=== PATIENT | male | born 1980 | race Hispanic/Latino ===

== ENCOUNTER 2020-05-05 22:05 | Inpatient (IN) | payer OTHER, MEDICARE ==
[~2020-05-05] VITALS: Ht 167.6 cm; Wt 102.1 kg
--- NOTE | 2020-05-05 22:05 | NUR ---
ARRIVAL TO UNIT PATIENT ARRIVED BY STRETCHER WITH EMS FOR TRANSPORTATION FROM [facility]
[2020-05-05 22:15] VITALS: BP 123/84
[2020-05-06] MEDS ORDERED: ATARAX PO PRN
[2020-05-06] MEDS ORDERED: ABILIFY PO ONE (00:30)
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
[2020-05-06 07:24] LABS: BASOPHIL # 0.1 10^3/uL (0.0-0.1); BASOPHIL % 0.9 % (0.0-0.2); EOSINOPHIL # 0.4 10^3/uL (0.0-0.2); EOSINOPHIL % 4.8 % (0.0-5.0); LYMPHOCYTES # 3.25 10^3/uL1 (1.0-4.8); LYMPHOCYTES % 40.6 % (24.0-44.0); MEAN CORP HGB 30.5 pg (26-34); MONOCYTES # 0.8 10^3/uL (0.3-0.8); MONOCYTES % 9.9 % (5.0-12.0); NEUTROPHIL # 3.5 10^3/uL (1.8-7.7); NEUTROPHILS % 43.5 % (41.0-85.0); RED CELL DISTRIBUTION WIDTH 12.9 % (11.5-14.5)
[2020-05-06 07:45] LABS: CARBON DIOXIDE 29.9 mmol/L (20.0-32)
[2020-05-06 08:00] VITALS: BP 108/71
--- NOTE | 2020-05-06 08:03 | PRM.CONS ---
CONSULTATION CONSULTATION DATE OF CONSULTATION: 05/06/20 TIME: 7:15am REASON FOR CONSULT: Medical Management HISTORY OF PRESENT ILLNESS: Mr Gracia is a 39yo HM who presents to [facility] as a transfer patient from the [facility] for Major Depressive Disorder with Suicidal Ideation. Patient states that his left him recently and he became "emotionally disturbed". Patient started thinking about killing himself by overdosing with pills. He also started having auditory and visual hallucinations; and states that he started seeing an "entity" following him around, laughing at him, telling him that he was worthless and to kill himself. Currently, patient states that he is feeling "much better" now that he is back on the "right medications". He denies having any HORN, visual disturbances, chest pain, palpitations, SOB, cough, abdominal pain, NVD, fever or chills. PAST MEDICAL HISTORY: MDD, Schizophrenia with Paranoia and Delusions, Anxiety Disorder, Prior Suicide Attempt in 2004, Sinus Bradycardia, and Orthostatic Hypotension PAST SURGICAL HISTORY: [place] Tooth Extraction SOCIAL HISTORY: Pt smokes 1/2-1ppd x 17 yrs. 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 Pt denies using any recreational drugs. He is currently on Disability and not working at this time. FAMILY HISTORY: Pt states that he never knew his parents. ALLERGIES: Bupropion HOME MEDICATIONS: Pt's home meds have not yet been entered in [employer] REVIEW OF SYSTEMS: See HPI above. All other ROS negative including constitutional, eyes, ears, nose, throat, respiratory, cardiovascular, gastrointestinal, genitourinary, musculoskeletal, skin, neurological, psychiatric, and lymphatic. PHYSICAL EXAMINATION: (Conducted with assistance from RN at bedside.) VITAL SIGNS: T 98.5, HR 64, RR 19, BP 123/84, O2 sat 97% on RA GENERAL: Resting comfortably in NAD. No family or friends present at bedside. HEENT: NC/AT. PERRLA. EOMI. MMM. Neck is supple. LUNGS: CTAB. No wheezing, rales, or rhonchi. No sign of respiratory distress or cyanosis. HEART: Normal S1S2. No murmurs, rubs, gallops, or thrills. ABDOMEN: Soft. NTTP. No rebound or guarding. Normal BS throughout. EXTREMITIES: No pitting edema. Moving all 4 extremities equally and completely off the bed. NEUROLOGIC: AAOx3. No sensory deficits noted. CN II-XII grossly intact. FTN / HTS / RAHM intact BL. Gait was not assessed at this time. LABORATORY DATA: Reviewed and significant for Gluc 111 IMAGING STUDIES: No new studies today ASSESSMENT / PLAN: 1) MDD with Suicidal Ideation: Continue Tx as per Dr Felix with Psychiatry. Will also need to maintain suicidal precautions for now. 2) Anxiety Disorder / Schizophrenia with Paranoia and Delusions: Continue Tx as per Dr Felix with Psychiatry. 3) Chronic Sinus Bradycardia: Currently stable. Monitor for now. 4) Chronic Orthostatic Hypotension: Currently stable. Monitor for now. 5) Tobacco Abuse: Will prescribe a Nicotine Patch as requested. Pt has been counseled and encouraged to quit smoking. 6) DVT prophylaxis: Encourage ambulation. Pt was seen and examined with RN at bedside via Telemedicine with his permission. SHORTY THOMAS MD May 06, 2020 08:03
[2020-05-06] MEDS ORDERED: NICOTINE 21MG PATCH TD ONE (09:08)
[2020-05-06] MEDS: PAXIL PO SCH (09:12)
[2020-05-06] MEDS: NICOTINE 21MG PATCH TD SCH (09:13)
--- NOTE | 2020-05-06 09:13 | NUR ---
MORNING MEDS PT WAS GIVEN AM MEDS. PT TOOK PAXIL 20MG. APPLIED A NICOTINE 21MG PATCH PER NEW ORDER.
--- NOTE | 2020-05-06 10:12 | NUR ---
TELEMED PT WAS SEEN BY DR. MAYORGA VIA TELEMED. RECEIVED ORDERS TO DISCONTINUE ABILIFY AND START ZYPREXA, SEE EMR.
--- NOTE | 2020-05-06 10:15 | PCM.HP ---
History of Present Illness Hx of Present Illness 39 yo M, transferred from [facility] to [facility] for worsening mood, AVH, and SI with plan to OD. Patient reports that he and his a few days ago, and the stress of the situation was overwhelming. He started feeling acutely depressed, hopeless/helpless/worthless. He felt like his 4 yo daughter would not be safe with him b/c he could fall into a psychosis, so he gave his rights to his daughter away (not his 's daughter). He reports that he did have SI with plan to OD, so he sought help at the [facility]. He also reports that he started seeing VH of a better version of himself telling him that he should hurt himself. Since his arrival on the [facility], patient states that he has been feeling better, less depressed, "the patterns are still there, but the red is gone, I feel more balanced." He states that he doesn't feel suicidal anymore, but still worries about the command AH telling him to hurt himself. He hasn't had that happen today, states that the last AVH was earlier this morning, "when I closed my eyes, I could feel someone walking around around me and hear their footsteps." Patient states that his goal for his inpatient stay is to better cope with the separation from his . He states that he has been attending school, which helps him feel like he has a purpose. 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 Patient feels like he's "run out the clock" on Abilify, doesn't feel like it's controlling his symptoms very well. He states that he was previously on Zyprexa, felt like it worked well for him for a long time, "it totally stopped the hallucinations." He feels like Paxil does help significantly with his depression. E: quit November 2019, attends AA T: smokes 1/2 to 1 PPD D: denies Past Psych History: Schizophrenia, Depression, PTSD () Prior admissions - 2-3 prior admissions this year Prior suicide attempts: 2004 OD on cough/cold medicine (had just been discharged from , didn't feel like he had a purpose) Past Medical History: Sinus Bradycardia Orthostatic Hypotension Social History: D/C from [employer] for schizophrenia from Gave up rights to his 4 yo daughter On VA/ disability Review of Systems Other Mental Status Examination: Gen: A&Ox4, appears stated age, casual dress, good hygiene, good eye contact, cooperative Speech: normal rate/volume, easily understood Mood: "feeling better now" Affect: constricted Intelligence: avg by fund of knowledge TC: denies current SI/HI, feels/hears someone walking around him when he closes his eyes TP: C/L/GD Insight: fair Judgment: fair Allergies: Coded Allergies: bupropion (Verified Allergy, Intermediate, 05/06/20) tachycardia VTE VTE Risk Total Score: 0 VTE Risk Score VTE Risk: Score 0-1 = Low Risk (Aggressive mobilization; early ambulation; no VTE prophylaxis required) Score 2: Moderate Risk (Intermittent/Pneumatic Compression Device OR Lovenox/Heparin/Coumadin) Score 3-4: High Risk (Intermittent/Pneumatic Compression Device AND Lovenox/Heparin/Coumadin) Score > or =5: Highest Risk (Intermittent/Pneumatic Compression Device AND Lovenox/Heparin/Coumadin) VTE VTE Present on Admission: No Currently receiving anticoagul: No VTE Risk Total Score: 0 Exam Vital Signs Vital Signs Date Time Temp Pulse Resp B/P (MAP) Pulse Ox O2 Delivery O2 Flow Rate FiO2 05/06/20 08:00 97.6 63 20 108/71 (83) 99 Room Air General Appearance: Alert, Oriented X3, Cooperative, No acute distress HEENT: Atraumatic Psych/Mental Status: Other (see MSE above) Assessment/Plan Assessment/Plan Assessment/Plan 39 yo M, hx of Schizophrenia, depression, PTSD, presents for worsening mood/AVH/SI in the context of separation from his . Patient with an acute worsening in his depression/psychosis related to stressor, has felt better since admission, though would like to change his Abilify to Zyprexa given prior good response; he is also interested on working on his coping skills while here. Reviewed R/B/SEs of medications. Provided supportive therapy for stressors. PVU, agrees with plan. [place] I: MDD, rec, severe, with psychotic features Schizophrenia Patient History: Unknown 21 Unknown Family History Plan 1) D/C Abilify 2) Start Zyprexa Zydis 10mg SL QHS for mood/psychosis 3) Continue Paxil 20mg PO Daily for mood 4) Continue Vistaril 25mg PO Q6hrs PRN anxiety/sleep 5) Continue behavioral management 6) Appreciate hospitalist assistance with medical issues CADE MAYORGA MD May 06, 2020 10:15
--- NOTE | 2020-05-06 15:57 | NUR ---
PIRP P: ALTERED THOUGHT PROCESS, ALTERATION IN MOOD I: DIRECT LINE OF SIGHT OBSERVATION, ASSESS FOR DEPRESSION/ANXIETY, ASSESS FOR PSYCHOTIC SYMPTOMS, ASSIST WITH DIFFERENTIATING BETWEEN INTERNAL AND EXTERNAL REALITY, GIVE CLEAR AND SIMPLE INSTRUCTIONS, PROVIDE TASK-ORIENTED ACTIVITIES, PROVIDE 1:1 TO ENCOURAGE EXPRESSION OF FEELINGS, GIVE MEDICATIONS ORDERED, ALTERNATE REST/ACTIVITY, PROVIDE MEDICATION AND DISEASE PROCESS EDUCATION, PROVIDE SAFE AND SUPPORTIVE ENVIRONMENT R: PT HAS FLAT AFFECT MAJORITY OF SHIFT, IS PLEASANT WITH APPROACH. ALERT AND ORIENTED x3, PARTICIPATES IN GROUP ACTIVITIES, AND TAKES MEDICATIONS ORDERED. RATES DEPRESSION 8/10, ANXIETY 5/10, DENIES SUICIDAL/HOMICIDAL IDEATION. PT REPORTS HAVING VISUAL AND AUDITORY HALLUCINATIONS THAT HAVE DECREASED SHIFT HAS PROGRESSED, NO DELUSIONS NOTED. P: PT REQUESTED CHANGE IN ANTIPSYCHOTIC MEDICATION, WILL START ZYPREXA AT HS
--- NOTE | 2020-05-06 18:22 | NUR ---
PT PRESENTED TO ER FOR MEDICAL CLEARANCE D/T SUICIDAL THOUGHTS W/PLAN TO OD ON MEDICATIONS, AV COMMAND HALLUCINATIONS TO HURT SELF AND SYMPTOMS ASSOCIATED WITH SEVERE DEPRESSION. PT CURRENTLY LIVES HOME ALONE & PLANS TO RETURN UPON D/C. RECOMMENDED INPATIENT TREATMENT ON A VOLUNTARY STATUS AT [facility] AT THIS TIME. Addendum: 05/06/20 at 1824 by PAT Pope Amended: Links added.
--- NOTE | 2020-05-06 18:24 | NUR ---
SEE MMSE, GMAS & BIOPSYCHOSOCIAL IN PAPER CHART.
[2020-05-06 20:00] VITALS: BP 127/85
[2020-05-06] MEDS: ZYPREXA ZYDIS SL SCH (20:11)
[2020-05-06] MEDS ORDERED: ABILIFY PO SCH (21:00)
--- NOTE | 2020-05-07 02:45 | NUR ---
P.I.R.P. P. ALTERATION IN THOUGHT PROCESS I. PROVIDE EVERY 15 MINUTE CHECKS, PROVIDE DIRECT LINE OF SIGHT, PROVIDE MEDICATIONS ORDERED PER MD, PROVIDE EDUCATION REFERENCE MEDS, MONITOR FOR CHANGES IN COGNITIVE. PROVIDE 1:1 INTERVENTION TO ALLOW PATIENT TO EXPRESS FEELINGS. R. PATIENT TOOK MEDS ORDERED, ATTENDED GROUP ACTIVITY, DENIED SUICIDAL IDEATION, REPORTED ANXIETY AN 8 AND DEPRESSION 5 ON SCALE, REPORTED HE DID HAVE HALLUCINATIONS WHEN TALKING TO TREASURER THIS EVENING. PATIENT APPEARED SOME WITHDRAWN. PATIENT VOICED HE DID TRY TO CALL HIS SPOUSE TODAY BUT DID NOT GET A HOLD OF HER HE WANTED TO GET A PHONE NUMBER FOR HIS SPONSOR. SPOUSE DID CALL UNIT BUT VOICING SHE DID NOT KNOW WHO CALLED HER FROM THIS NUMBER. PATIENT WAS IN WITH TREASURER SO DID NOT DISTURB HIM. LATER TOLD PATIENT WHO HAD CALLED, PATIENT REPORTED HE WOULD CALL SPOUSE BACK TOMORROW IT WAS AFTER CALL TIME ON UNIT. P. CONTINUE CURRENT PLAN OF CARE.
[2020-05-07 07:34] VITALS: BP 134/85
[2020-05-07] MEDS: NICOTINE 21MG PATCH TD SCH (08:34)
[2020-05-07] MEDS: PAXIL PO SCH (08:34)
--- NOTE | 2020-05-07 09:40 | NUR ---
TELEMED PT WAS SEEN BY DR. MAYORGA VIA TELEMED. RECEIVED ORDERS FOR DISCHARGE, TOMORROW, 05/08/2020.
--- NOTE | 2020-05-07 09:48 | PRM.PN ---
Mood: "feeling much better" Sleep: 8 hrs Appetite: good appetite Suidical thoughts: denies Homicidal thoughts: denies Recent stressors: worried about school Monday Aggressive Behavior: denies Ability to Perform ADL'sc: independent Psychotic sympstoms: denies Manic Symptoms: denies Living situation: home/self Anxity Symptoms: "I'm anxiously excited." Anger/Irritablility: denies Appearance: Well groomed/hygience, Casual attire, Appears age stated Attitude & Behaviour: Cooperative/Pleasant Mood & Affect: Euthymic/appr/congruent, Constricted Orientation: Fully oriented per interv Attention/Concentration: Good attention, Good concentration Speech: Reg rate/vol/rhyth/prosod Judgement/Insight: Good judgement, Good insight Thought Process: Linear/goal directed Language: German Thought content/Abnormal/Psych: None/normal Fund of Knowledge: WNL Associations: WNL/Normal Associations Memory (recent and remote): Gross int/not form assess Constitutional: None Neurological: None Psychiatric: None [place] I: MDD, rec, severe with psychotic features; Schizophrenia Assessment/Plan Assessment/Plan Assessment/Plan Nursing: Patient slept 8 hours Reported AVH yesterday, playing guitar helps No AVH today Patient: Patient reports feeling better today. He had AVH yesterday, but states that he went to recreation therapy and played guitar which helped. He took Zyprexa last night, feels like it has completely stopped the voices like it did before. He reports that mood is much better than it was on admission, "I've had time to focus on treatment." No manic symptoms, no SI/HI. No current psychotic symptoms. He reports that he's anxiously excited about his progress and he hopes that he'll be able to be discharged tomorrow if his improvement is sustained. He reports that he's attending college and has assignments due on Monday, so hopes to d/c tomorrow so he can have time to complete them. Assessment: 39 yo M, hx of Schizophrenia, depression, PTSD, presents for worsening mood/AVH/SI in the context of separation from his . Patient responding well to medications and behavioral management. If his improvement is sustained tomorrow, may d/c home. PVU, agrees with plan. Patient History: Unknown 21 Unknown Family History Plan 1) Anticipate him for D/C tomorrow 2) Continue Zyprexa Zydis 10mg SL QHS for mood/psychosis 3) Continue Paxil 20mg PO Daily for mood 4) Continue Vistaril 25mg PO Q6hrs PRN anxiety/sleep 5) Continue behavioral management 6) Appreciate hospitalist assistance with medical issues CADE MAYORGA MD May 07, 2020 09:48
[2020-05-07] MEDS ORDERED: [UNRECOGNIZED DRUG - CODE] PO (12:08)
[2020-05-07] MEDS ORDERED: OLAN5TAB5 SL (12:08)
--- NOTE | 2020-05-07 17:03 | NUR ---
PIRP P: ALTERATION IN MOOD I: ASSESS FOR DEPRESSION/ANXIETY, ASSESS FOR PSYCHOTIC SYMPTOMS, GIVE CLEAR AND SIMPLE INSTRUCTIONS, PROVIDE TASK-ORIENTED ACTIVITIES, PROVIDE 1:1 TO ENCOURAGE EXPRESSION OF FEELINGS, GIVE MEDICATIONS ORDERED, ALTERNATE REST/ACTIVITY, PROVIDE SAFE AND SUPPORTIVE ENVIRONMENT R: PT HAS BRIGHT, PLEASANT AFFECT THROUGHOUT SHIFT. DENIES FEELINGS OF DEPRESSION, DOES REPORT SOME ANXIETY R/T TRYING TO FIGURE OUT HOUSING SITUATION AND POTENTIAL RELOCATION. DENIES SUICIDAL OR HOMICIDAL IDEATION, NO HALLUCINATIONS OR DELUSIONS NOTED. PT HAS PARTICIPATED IN GROUP ACTIVITIES, TAKES MEDICATIONS ORDERED, AND IS COOPERATIVE WITH ADLS. INITIATES INTERACTION WITH STAFF AND PEERS, RESPONDS APPROPRIATELY TO APPROACH. P: PLANS FOR POSSIBLE DISCHARGE TOMORROW, 05/08/2020
[2020-05-07 19:15] VITALS: BP 138/87
[2020-05-07] MEDS: ZYPREXA ZYDIS SL SCH (20:33)
--- NOTE | 2020-05-08 04:17 | NUR ---
PIRP- P- ALTERATION IN MOOD I- PROVIDE MEDICATION ORDERED,PROVIDE SAFE AND SUPPORTIVE ENVIRONMENT , PROVIDE DIRECT LINE OF SIGHT. R- PT. ORIENTED TIMES FOUR. RATED DEPRESSION AND ANXIETY 2. DENIES SI TONIGHT. DENIES PARANOIA AND HALLUCINATIONS TONIGHT. ATTENDED GROUP AND ATE SNACKS. QUIT BUT INTERACTED IN GROUP. TOOK MEDICATION ORDERED. PT. WROTE A NICE POEM AND GAVE TO [facility] STAFF.IN BED RESTING WITH EYES CLOSED AT THIS TIME. P- WILL CONTINUE TO PROVIDE 1:1 INTERVENTION ALLOWING PT. TO EXPRESS THOUGHTS AND FEELINGS. CONTINUE DIRECT LINE OF SIGHT.
[2020-05-08 07:26] VITALS: BP 118/75
[2020-05-08] MEDS: PAXIL PO SCH (08:49)
[2020-05-08] MEDS: NICOTINE 21MG PATCH TD SCH (08:49)
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
[2020-05-08] MEDS ORDERED: NICO-450 TD (11:48)
--- NOTE | 2020-05-08 12:00 | NUR ---
RX RX FAXED TO THE [facility] AT [phone].
--- NOTE | 2020-05-08 12:40 | NUR ---
DISCHARGE DISCHARGE EDUCATION AND FOLLOW UP INFORMATION PROVIDED TO PT. PT IS TO FOLLOW UP WITH THE [facility] IOP ON May AT 3:00 P.M. FOR PSYCHIATRIST EVALUATION. EDUCATION PROVIDED REGARDING SMOKING CESSATION, ANXIETY, DEPRESSION, PSYCHOSIS, AND MEDICATIONS INCLUDING NICOTINE SKIN PATCHES. PT IS ABLE TO VERBALIZE UNDERSTANDING, QUESTIONS AND CONCERNS ANSWERED.
[2020-05-08 12:47] VITALS: BP 118/75
--- NOTE | 2020-05-08 12:47 | NUR ---
OFF UNIT PT AMBULATED OFF UNIT ALONGSIDE THIS RN, DOWN TO PRIVATE VEHICLE. NO ACUTE DISTRESS NOTED, DENIES PAIN AT THIS TIME, STRONG AND STEADY GAIT.
--- NOTE | 2020-05-09 10:31 | PRM.DC ---
Subjective Subjective Date of Discharge: May 08, 2020 Time of Request to Discharge: 14:00 Subjective 39 yo M, transferred from [facility] to [facility] for worsening mood, AVH, and SI with plan to OD in the context of psychosocial stressor -- separation from . He was treatment seeking and went to [facility] who transferred him here. He felt like his Abilify was no longer working, it was changed to Zyprexa, which he reported was previously very effective for him. He responded well to medications and behavioral management, patient reconstituted quickly, with improvement in mood, and resolution of his AVH/SI. Patient was future- oriented, wanting to discharge so he can complete his college assignments due on Monday. Patient History: Unknown 21 Unknown Family History Exam Vital Signs Vital Signs Date Time Temp Pulse Resp B/P (MAP) Pulse Ox O2 Delivery O2 Flow Rate FiO2 05/08/20 12:47 88 18 95 Room Air 05/08/20 07:26 98.1 118/75 (89) Psych/Mental Status: Mental status NL VTE VTE Risk Total Score: 0 VTE Risk Score VTE Risk: Score 0-1 = Low Risk (Aggressive mobilization; early ambulation; no VTE prophylaxis required) Score 2: Moderate Risk (Intermittent/Pneumatic Compression Device OR Lovenox/Heparin/Coumadin) Score 3-4: High Risk (Intermittent/Pneumatic Compression Device AND Lovenox/Heparin/Coumadin) Score > or =5: Highest Risk (Intermittent/Pneumatic Compression Device AND Lovenox/Heparin/Coumadin) Objective Vitals and I/O Vital Sign - Last 24 Hours 05/08/20 12:47 Pulse 88 Resp 18 Pulse Ox 95 O2 Delivery Room Air Intake and Output 05/09/20 07:00 Intake Total 1174 ml Balance 1174 ml General: Alert, Oriented X3, Cooperative, No acute distress HEENT: Atraumatic Psych/Mental Status: Mental status NL All Results(Lab/Rad) Current Medications Medications (Trade) Dose Ordered Sig/Lei Route PRN Reason Start Time Stop Time Status Last Admin Dose Admin Hydroxyzine HCl (Atarax) 25 mg Q6HR PRN PO sleep 05/06/20 00:00 05/08/20 15:50 DC 05/06/20 00:51 Paroxetine HCl (Paxil) 20 mg DAILY PO 05/06/20 09:00 05/08/20 15:50 DC 05/08/20 08:49 Aripiprazole (Abilify) 15 mg HS PO 05/06/20 21:00 05/06/20 10:26 DC Aripiprazole (Abilify) 15 mg OT ONCE PO 05/06/20 00:30 05/06/20 00:59 DC 05/06/20 00:52 Nicotine (Nicotine 21mg Patch) 1 each STK-MED ONCE TD 05/06/20 09:08 05/06/20 09:10 DC Nicotine (Nicotine 21mg Patch) 1 each DAILY TD 05/06/20 09:30 05/08/20 15:50 DC 05/08/20 08:49 Olanzapine (Zyprexa Zydis) 10 mg HS SL 05/06/20 21:00 05/08/20 15:50 DC 05/07/20 20:33 Medication Reconciliation Scheduled Nicotine (Nicotine Patch), 1 EACH TD DAILY Olanzapine (Zyprexa Zydis), 10 MG SL HS Paroxetine Hcl (Paxil), 20 MG PO DAILY Plan Assessment 39 yo M, hx of Schizophrenia, depression, PTSD, presents for worsening mood/AV H/SI in the context of separation from his . Patient with an acute worsening in his depression/psychosis related to stressor, has felt better since admission, though would like to change his Abilify to Zyprexa given prior good response; he is also interested on working on his coping skills while here. Reviewed R/B/SEs of medications. Provided supportive therapy for stressors. PVU, agrees with plan. [place] I: MDD, rec, in remission Schizophrenia Plan 1) D/C home, with followup at [facility] 2) Patient is NOT an imminent risk of harming self or others at this time 3) Patient does NOT desire continued voluntary hospitalization at this time 4) Patient does NOT meet criteria for involuntary hospitalization at this time 5) ER warnings for worsening symptoms or any other patient concern CADE MAYORGA MD May 09, 2020 10:31
== END 2020-05-08 12:47 | disposition home or self-care (01) | DRG 885 ==
LOC: EEVIPCON 22:05 → GP 22:05
PROVIDERS: ADMIT Psychiatry & Neurology Psychiatry; ATTEND Psychiatry & Neurology Psychiatry
DX: F33.3 Major depressive disorder, recurrent, severe with psychotic symptoms (principal); R45.851 Suicidal ideations; F43.10 Post-traumatic stress disorder, unspecified; F10.21 Alcohol dependence, in remission; F41.9 Anxiety disorder, unspecified; F17.210 Nicotine dependence, cigarettes, uncomplicated; R00.1 Bradycardia, unspecified; I95.1 Orthostatic hypotension; Z91.5 Personal history of self-harm; Z71.6 Tobacco abuse counseling; Z88.8 Allergy status to other drugs, medicaments and biological substances
CPT/HCPCS: 36415; 80053; 83036; 83735; 84100; 84443; 85025; 97150; G0378